=== PATIENT | female | born 1975 | race Caucasian/White ===

== ENCOUNTER → 2017-10-17 | Outpatient (CLI) | payer OTHER ==
[~2017-10-17] MED LIST: ACET-1966 PO; BUPXL150 PO; CALC300T PO; CALC400T65 PO; CHOL100058 PO; FEXO-1 PO; GLUC100026 PO; IBUP-2704 PO; IBUP-56 PO; MULT-977 PO; OXYC-865 PO; PER PO; PRAV20TA65 PO
[2017-10-17 09:29] LABS: LDL CHOLESTEROL 125 mg/dl
== END ==
LOC: LAB 08:45
PROVIDERS: ATTEND Obstetrics & Gynecology
DX: Z00.00 Encounter for general adult medical examination without abnormal findings (principal)
CPT/HCPCS: 36415; 82040; 82247; 82310; 82374; 82435; 82465; 82565; 82947; 83036; 83718; 84075; 84132; 84155; 84295; 84443; 84450; 84460; 84478; 84520; 85027

== ENCOUNTER → 2018-07-17 | Outpatient (CLI) | payer OTHER ==
--- NOTE | 2018-07-17 15:26 | RADIOLOGY IMAGING REPORT ---
FACILITY: [facility] PATIENT NAME: RAUL GLEASON : [id number] MR: [id number] V: [id number] EXAM DATE: [id number] ORDERING PHYSICIAN: YOAN SANTIAGO TECHNOLOGIST: Maria Luisa Mi PROCEDURE:BILATERAL DIGITAL SCREENING MAMMOGRAM WITH CAD ASSISTED INTERPRETATION & 3D TOMOSYNTHESIS COMPARISON:Prior mammograms 08/07/2017, 08/06/2016. INDICATIONS:SCREENING TISSUE DENSITY: Scattered fibroglandular densities. FINDINGS: There is no mammographic finding suspicious for malignancy, and no significant change compared to prior mammograms. DIAGNOSTIC CATEGORY 1--NEGATIVE. RECOMMENDATIONS: ANNUAL BILATERAL SCREENING MAMMOGRAM AND CLINICAL EVALUATION. IMPRESSION: BIRADS 1: Negative. Dictated by: Leela Hansen M.D. on 07/17/2018 at 11:51 Transcribed by: JONNY on 07/17/2018 at 13:42 Approved by: Leela Hansen M.D. on 07/17/2018 at 15:25 [facility]
== END ==
LOC: MAMO 04:38
PROVIDERS: ATTEND Obstetrics & Gynecology
DX: Z12.31 Encounter for screening mammogram for malignant neoplasm of breast (principal)
CPT/HCPCS: 77063; 77067